=== PATIENT | male | born 1985 | race Caucasian/White ===

== ENCOUNTER 2022-02-03 12:17 | Emergency (ER) | payer BC ==
[~2022-02-03] VITALS: Ht 177.8 cm; Wt 95.5 kg
[2022-02-03 12:30] VITALS: TEMP 98.3
[2022-02-03 15:21] LABS: BASO % 0.2 % (0.0-2.0); EOS # 0.1 K/mm3 (0.0-0.7); EOS % 0.6 % (0.0-4.0); GRAN # 8.3 K/mm3 (1.4-6.5); GRAN % 74.2 % (42.2-75.2); HEMATOCRIT 45.1 % (42.0-52.0); HEMOGLOBIN 15.3 g/dl (13.5-18.0); LYMPH # 1.9 K/mm3 (1.2-3.4); LYMPH % 17.1 % (20.0-51.0); MEAN CELL VOLUME 84 fl (80.0-100.0); MEAN CORPUSCULAR HEMOGLOBIN 29 pg (27-31); MEAN CORPUSCULAR HGB CONC 34 g/dl (33.0-37.0); MEAN PLATELET VOLUME 9.4 fl (7.4-10.4); MONO # 0.8 K/mm3 (0.1-0.6); MONO % 7.4 % (1.7-9.3); PLATELET COUNT 286 K/mm3 (130-400); RED BLOOD COUNT 5.36 M/mm3 (4.20-5.60); REDCELL DISTRIBUTION WIDTH-CV 12.8 % (11.5-14.5)
[2022-02-03 16:04] LABS: TROPONIN-I < 0.010 ng/mL (0.00-0.033)
[2022-02-03 16:27] VITALS: BP 122/82; PULSE 74
== END 2022-02-03 16:29 | disposition home or self-care (01) ==
LOC: COL.ER 12:17
PROVIDERS: Physician Assistant
DX: R07.89 Other chest pain (principal)